=== PATIENT | female | born 1970 | race Caucasian/White ===

== ENCOUNTER 2023-10-27 09:38 | Outpatient (CLI) | payer BC ==
[2023-10-27 16:10] LABS: CHOL/HDL RATIO 2.6 (<4.4); CHOLESTEROL 201 mg/dL; HDL CHOLESTEROL 76 mg/dL; LDL CHOLESTEROL,CALCULATED 112 mg/dL; LDL/HDL RATIO 1.5 (<4.4); TRIGLYCERIDES 66 mg/dL; VLDL CHOLESTEROL 13 mg/dL
== END 2023-10-27 09:39 | disposition home or self-care (01) ==
LOC: LAB.S 09:38
PROVIDERS: ATTEND Naturopath
DX: E34.8 Other specified endocrine disorders (principal); R79.89 Other specified abnormal findings of blood chemistry; R73.09 Other abnormal glucose; N95.9 Unspecified menopausal and perimenopausal disorder; N95.1 Menopausal and female climacteric states; Z79.890 Hormone replacement therapy; G47.00 Insomnia, unspecified; Z82.3 Family history of stroke; R53.82 Chronic fatigue, unspecified
CPT/HCPCS: 36415; 80061; 81599; 83721; 84144